=== PATIENT | male | born 1960 | race Caucasian/White ===

== ENCOUNTER 2021-05-27 14:20 | Emergency (ER) | payer BC, OTHER ==
[~2021-05-27] VITALS: Ht 188 cm; Wt 94.8 kg
--- NOTE | 2021-05-27 17:44 | REP ---
INDICATION: pain/popping Nontraumatic hip pain. COMPARISON: None. TECHNIQUE: Frontal view of the pelvis with neutral and frog lateral views of the left hip. FINDINGS: Generalized age-related changes are appreciated bilaterally. Osseous structures are intact and without acute fracture or dislocation. Surrounding soft tissues are unremarkable. IMPRESSION: Symmetric age-related changes. <Electronically signed by Marcelino Ochoa > 05/27/21 [id number]
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
[2021-05-27 19:47] VITALS: BP 142/68
== END 2021-05-27 19:48 | disposition home or self-care (01) ==
LOC: M ED 14:20
DX: S76.002A Unspecified injury of muscle, fascia and tendon of left hip, initial encounter (principal); X58.XXXA Exposure to other specified factors, initial encounter; Y92.89 Other specified places as the place of occurrence of the external cause; R22.42 Localized swelling, mass and lump, left lower limb